=== PATIENT | male | born 1950 | race Caucasian/White ===

== ENCOUNTER 2016-11-19 11:22 | Observation (INO) | payer OTHER, BC ==
[~2016-11-19] VITALS: Ht 180.3 cm; Wt 90.0 kg
[2016-11-19 11:43] LABS: BASOPHIL COUNT 0.1 K/uL (0-0.1); EOSINOPHIL (%) 2.5 % (0-5); EOSINOPHIL COUNT 0.1 K/uL (0-0.3); HEMATOCRIT 45.1 % (38.0-50.0); IMMATURE GRANULOCYTE (%) 0.4 % (0.0-0.7); INSTRUMENT ABS NEUTROPHIL CT 2.6 K/uL; LYMPHOCYTE COUNT 1.3 K/uL (1.0-2.8); MCH 33.2 PG (29.0-34.0); MCHC 34.1 G/DL (30.0-36.0); MCV 97.2 FL (86-99); MEAN PLAT.VOLUME 9.4 uM^3 (9.0-12.4); MONOCYTE (%) 12.1 % (3-12); MONOCYTE COUNT 0.6 K/uL (0-0.8); NEUTROPHIL (%) 55.9 % (45-76); NEUTROPHIL COUNT 2.6 K/uL (1.8-6.4); PLATELET COUNT 192 K/uL (156-360); RBC DIS.WIDTH-CV 11.9 % (11.8-14.6); RBC DIS.WIDTH-SD 42.9 % (39-53); RED BLOOD COUNT 4.64 M/uL (4.00-5.50); WHITE BLOOD COUNT 4.7 K/uL (4.1-10.2)
[2016-11-19 11:55] LABS: CHLORIDE 105 mEq/L (99-109); POTASSIUM 4.9 mEq/L (3.7-5.4); SODIUM 140 mEq/L (136-147)
[2016-11-19 11:57] LABS: GLUCOSE 100 mg/dL (70-99)
[2016-11-19 11:58] LABS: ANION GAP 7 MEQ/L (2-14)
[2016-11-19 11:59] LABS: TOTAL BILIRUBIN 0.4 mg/dL (0.0-1.0)
[2016-11-19 12:00] LABS: ALKALINE PHOSPHATASE 96 IU/L (3-129)
[2016-11-19 12:01] LABS: GFR ESTIMATE (CALCULATED) > 59 mL/min/
[2016-11-19 12:02] LABS: UREA NITROGEN (BUN) 13 mg/dL (9-23)
[2016-11-19 12:04] LABS: TROP-I INTERPRETATION NEGATIVE; TROPONIN-I < 0.01 ng/mL (0.0-0.30)
[2016-11-19 12:13] LABS: Estimated Average Glucose 103 mg/dL (70-123); HEMOGLOBIN A1c (GLYCOHEMOGLOB) 5.2 % HGB (Below 5.7)
[2016-11-19 12:16] LABS: ADD MIUA? NO; BILIRUBIN NEGATIVE; BLOOD NEGATIVE; COLOR COLORLESS ((YELLOW)); GLUCOSE (STRIP) NEGATIVE; KETONES NEGATIVE; LEUKOCYTES NEGATIVE; NITRITE NEGATIVE; PROTEIN (STRIP) NEGATIVE; SPECIFIC GRAVITY 1.004 (1.000-1.030); UCUL ADDED? NO; UROBILINOGEN 0.2 MG/DL (0.2-1.0)
[2016-11-19 12:42] LABS: HDL CHOLESTEROL 70 MG/DL (Desirable>=40); LDL CHOLESTEROL 127 mg/dL (Desirable<100); NON-HDL CHOLESTEROL 135 mg/dL (Desirable<160); TOTAL CHOLESTEROL 205 mg/dL (Desirable<200); TRIGLYCERIDES 42 MG/DL (Normal: <150)
[2016-11-19] MEDS ORDERED: ELMIRON100 MG PO (13:20)
[2016-11-19] MEDS ORDERED: CRANBERRY500 M2 PO (13:21)
[2016-11-19] MEDS ORDERED: L-ARGININE500 M1 PO (13:21)
[2016-11-19] MEDS ORDERED: L-LYSINE500 M1 PO (13:22)
[2016-11-19 14:49] VITALS: BP 132/70
[2016-11-19 18:31] LABS: TROP-I INTERPRETATION NEGATIVE; TROPONIN-I 0.01 ng/mL (0.0-0.30)
[2016-11-19 20:00] VITALS: BP 125/66
[2016-11-20 01:06] VITALS: BP 107/61
[2016-11-20 01:09] LABS: TROP-I INTERPRETATION NEGATIVE; TROPONIN-I < 0.01 ng/mL (0.0-0.30)
[2016-11-20 09:00] VITALS: BP 122/65
[2016-11-20] MEDS ORDERED: ASPIR-TRIN325 M1 PO (11:03)
== END 2016-11-20 11:53 | disposition home or self-care (01) ==
LOC: EME 11:22 → EDOF 13:37 → 5WEST 13:37
PROVIDERS: Emergency Medicine; Internal Medicine
DX: G45.9 Transient cerebral ischemic attack, unspecified (principal); Z85.038 Personal history of other malignant neoplasm of large intestine
CPT/HCPCS: 70450; 70551; 71020; 80053; 80061; 81003; 83036; 84443; 84484; 85025; 93005; 93306; 93880; 99281; 99285; G0378; J1650